=== PATIENT | female | born 2000 | race Caucasian/White ===

== ENCOUNTER 2023-01-02 07:06 | Outpatient (CLI) | payer BC, SELFPAY ==
--- NOTE | 2023-01-02 07:15 | CRLHL7_ITS ---
For Patients: As a result of the Century Cures Act, medical imaging exams and procedure reports are released immediately into your electronic medical record. You may view this report before your referring provider. If you have questions, please contact your health care provider. CLINICAL HISTORY: PELVIC AND PERINEAL PAIN TECHNIQUE: 2D [place] scale ultrasound. In addition color Doppler and spectral Doppler analysis was performed of the pelvis using a transabdominal and transvaginal approach. FINDINGS: The myometrium has a normal uniform echotexture. The uterus measures 5.2 x 2.8 x 3.9 cm. The endometrial lining appears normal and measures 2 mm in thickness. The right ovary measures 3.1 x 1.4 x 2.0 cm in size and the left ovary measures 2.8 x 2.9 x 1.6 cm. The ovaries demonstrate normal arterial and venous blood flow on color Doppler and spectral Doppler analysis. There are no suspicious fluid collections within the cul-de-sac. IMPRESSION: Normal pelvic ultrasound. No ovarian torsion. Dictated by Izaiah Ramon MD @ 01/02/2023 8:50:24 AM (Electronically Signed)
== END 2023-01-02 07:07 | disposition home or self-care (01) ==
PROVIDERS: Visit Provider Physician Assistant
DX: R10.2 Pelvic and perineal pain (principal)
CPT/HCPCS: 76830; 76856; 93976